=== PATIENT | female | born 1980 | race Caucasian/White ===

== ENCOUNTER 2017-11-22 18:41 | Emergency (ER) | payer MEDICAID ==
[~2017-11-22] VITALS: Ht 154.9 cm; Wt 84.1 kg
[2017-11-22 19:07] VITALS: Ht 154.9 cm; Wt 84.1 kg
[2017-11-22] MEDS ORDERED: NAPROSYN500 MG PO (22:12)
[2017-11-22 23:06] VITALS: BP 149/100
== END 2017-11-22 23:04 | disposition home or self-care (01) ==
LOC: D.ER 18:41
DX: R07.81 Pleurodynia (principal); I10 Essential (primary) hypertension; F17.200 Nicotine dependence, unspecified, uncomplicated

== ENCOUNTER 2018-07-15 18:25 | Emergency (ER) | payer MEDICAID ==
[~2018-07-15] VITALS: Ht 154.9 cm; Wt 84.5 kg
[~2018-07-15 18:25] MED LIST: NAPROSYN500 MG PO
[2018-07-15 18:41] VITALS: BP 141/92; Ht 154.9 cm; Wt 84.5 kg
[2018-07-15] MEDS ORDERED: CLEOCIN HCL300 MG PO (21:18)
== END 2018-07-15 21:30 | disposition home or self-care (01) ==
LOC: D.ER 18:25
DX: R59.0 Localized enlarged lymph nodes (principal)

== ENCOUNTER 2018-10-30 21:50 | Emergency (ER) | payer MEDICAID ==
[~2018-10-30] VITALS: Ht 154.9 cm; Wt 88.6 kg
[~2018-10-30 21:50] MED LIST changes: +CLEOCIN HCL300 MG PO
[2018-10-30] MEDS ORDERED: BUTALB-APAP-CA1 EACH PO (22:07)
[2018-10-30] MEDS ORDERED: PROCARDIA10 MG PO (22:07)
[2018-10-30] MEDS ORDERED: AUGMENTIN 875-11 TAB (22:08)
[2018-10-30 23:29] LABS: HCG SERUM NEGATIVE (NEGATIVE)
== END 2018-10-31 00:11 | disposition home or self-care (01) ==
LOC: D.ER 21:50
PROVIDERS: Family Medicine
DX: I10 Essential (primary) hypertension (principal); R51 Headache

== ENCOUNTER 2019-04-29 16:38 | Emergency (ER) | payer MEDICAID ==
[~2019-04-29] VITALS: Ht 154.9 cm; Wt 86.4 kg
[~2019-04-29 16:38] MED LIST changes: +AUGMENTIN 875-11 TAB; +BUTALB-APAP-CA1 EACH PO; +PROCARDIA10 MG PO
[2019-04-29 16:50] VITALS: Ht 154.9 cm; Wt 86.4 kg
[2019-04-29 18:04] VITALS: BP 148/99
== END 2019-04-29 18:04 | disposition home or self-care (01) ==
LOC: D.ER 16:38
DX: J02.0 Streptococcal pharyngitis (principal); B95.1 Streptococcus, group B, as the cause of diseases classified elsewhere; Z72.0 Tobacco use; I10 Essential (primary) hypertension